=== PATIENT | female | born 1970 | race Caucasian/White ===

== ENCOUNTER 2020-03-07 18:53 | Emergency (ER) | payer OTHER ==
[2020-03-07 20:13] LABS: BASOPHIL 0.5 % (0-2); EOSINOPHIL 1.3 % (0-5); HGB 10.9 g/dl (12.5-16.0); LYMPHOCYTE 15.8 % (15-48); MCHC 30.3 g/dL (32.0-36.0); MCV 85.7 fL (78.0-100.0); MONOCYTE 6.8 % (0-12); MPV 11.7 fL (6.0-9.5); NEUTROPHIL 75.2 % (41-80); NRBC 0; PLT 233 K/uL (150-400); RDW 16.1 % (11.5-14.0); WBC 8.4 K/uL (4.0-10.5)
[2020-03-07 20:30] LABS: ALBUMIN 3.1 g/dL (3.4-5.0); BILIRUBIN - TOTAL 0.2 mg/dL (0.2-1.0); BUN/CREAT RATIO (CALC) 14.5 RATIO; C-REACTIVE PROTEIN 2.2 mg/dL (<=0.90); CREATININE 0.76 mg/dL (0.51-0.95); GLOBULIN (CALCULATION) 3.7 g/dL; POTASSIUM 3.8 mmol/L (3.5-5.1); TOTAL PROTEIN 6.8 g/dL (6.4-8.2)
[2020-03-07] MEDS ORDERED: ROBAXIN500 MG PO (21:52)
[2020-03-07] MEDS ORDERED: IBUPROFEN800 MG PO (21:52)
== END 2020-03-07 22:17 | disposition home or self-care (01) ==
LOC: FER 18:53
PROVIDERS: Emergency Medicine Emergency Medical Services
DX: M25.562 Pain in left knee (principal); M79.652 Pain in left thigh; M79.662 Pain in left lower leg; R60.0 Localized edema; Z88.2 Allergy status to sulfonamides; Z88.5 Allergy status to narcotic agent
CPT/HCPCS: 36415; 80053; 85025; 85379; 86140; 93971; J1100; J1940; J2800; J7050

== ENCOUNTER 2021-08-24 12:28 | Emergency (ER) | payer OTHER ==
[~2021-08-24 12:28] MED LIST: IBUPROFEN800 MG PO; ROBAXIN500 MG PO
[2021-08-24 13:17] LABS: BASOPHIL 0.9 % (0-2); EOSINOPHIL 1.3 % (0-5); HGB 9.6 g/dl (12.5-16.0); MCH 24.4 pg (25.0-31.0); MCV 81.2 fL (78.0-100.0); MONOCYTE 8.2 % (0-12); MPV 10.4 fL (6.0-9.5); NEUTROPHIL 68.2 % (41-80); NRBC 0; PLT 224 K/uL (150-400); RBC 3.94 M/uL (4.20-5.40); RDW 18.6 % (11.5-14.0); WBC 5.5 K/uL (4.0-10.5)
[2021-08-24 13:41] LABS: ALBUMIN 3.6 g/dL (3.4-5.0); BILIRUBIN - TOTAL 0.5 mg/dL (0.2-1.0); BUN/CREAT RATIO (CALC) 16.5 RATIO; CREATININE 0.85 mg/dL (0.51-0.95); GLOBULIN (CALCULATION) 3.3 g/dL; POTASSIUM 4.1 mmol/L (3.5-5.1); TOTAL PROTEIN 6.9 g/dL (6.4-8.2)
[2021-08-24 14:37] LABS: IRON % SATURATION 6.2 %SAT (20-50)
[2021-08-24 15:09] LABS: FOLIC ACID (SERUM) 16.4 ng/mL (8.6-58.9)
== END 2021-08-24 15:00 | disposition home or self-care (01) ==
LOC: FER 12:28
PROVIDERS: Emergency Medicine
DX: R20.2 Paresthesia of skin (principal); D64.9 Anemia, unspecified; E11.9 Type 2 diabetes mellitus without complications; K21.9 Gastro-esophageal reflux disease without esophagitis; Z88.2 Allergy status to sulfonamides; Z88.5 Allergy status to narcotic agent; Z79.899 Other long term (current) drug therapy
CPT/HCPCS: 36415; 70450; 80053; 82607; 82728; 82746; 83540; 83550; 85025